=== PATIENT | male | born 1990 | race African-American/Black ===

== ENCOUNTER 2017-07-21 19:14 | Emergency (ER) | payer OTHER ==
[~2017-07-21] VITALS: Ht 177.8 cm; Wt 77.1 kg
[~2017-07-21 19:14] MED LIST: ALBUTEROL17 GM INH; AMOXICILLIN500 M1 PO; BACTRIM DS TABL1 TA1 PO; DEPAKOTE PO; HYDROCODONE-APAP5 M1 PO; IBUPROFEN PO; INDOMETHACIN50 MG PO; KEFLEX500 MG; LOPRESSOR; MOTRIN600 M1 PO; NO MEDICATIONS; ORUDIS75 M1 DOB; PERCOCET5/325; PROZAC40 MG PO; SEROQUEL PO; TOPAMAX PO; TORADOL10 MG PO; VICODIN 5/1 TAB 5/50 PO; VICODIN 5/500 T1 TAB PO; VICODIN PO; VOLTAREN75 MG PO
[2017-07-21 21:48] LABS: URINE SOURCE CLEAN CATCH
[2017-07-21 21:50] LABS: URINE APPEARANCE CLEAR; URINE BILIRUBIN NEG (NEG); URINE BLOOD TRACE-LYSED (NEG); URINE COLOR YELLOW; URINE GLUCOSE NEG (NORM); URINE KETONE NEG (NEG); URINE LEUKOCYTE ESTERASE NEG (NEG); URINE NITRATE NEG (NEG); URINE PH 7.5 (5-8); URINE PROTEIN NEG (NEG); URINE UROBILINOGEN 0.2 MG/DL (NORM)
[2017-07-21 21:52] LABS: MICRO INDICATED? YES
[2017-07-21 21:55] LABS: CULTURE INDICATED? NO; URINE BACTERIA NEG (NEG); URINE SQUAMOUS EPITHELIAL CELL FEW /[HPF]; URINE WBC 0-2 /[HPF] (0-5)
== END 2017-07-21 23:20 | disposition home or self-care (01) ==
LOC: SED 19:14
PROVIDERS: Nurse Practitioner
DX: S39.012A Strain of muscle, fascia and tendon of lower back, initial encounter (principal); J45.909 Unspecified asthma, uncomplicated; I10 Essential (primary) hypertension; F17.290 Nicotine dependence, other tobacco product, uncomplicated; V49.10XA Passenger injured in collision with unspecified motor vehicles in nontraffic accident, initial encounter; Y92.410 Unspecified street and highway as the place of occurrence of the external cause
CPT/HCPCS: 81003; 99284; J1885